=== PATIENT | female | born 1995 ===

== ENCOUNTER 2016-09-29 22:13 | Emergency (ER) | payer OTHER ==
[~2016-09-29] VITALS: Ht 157.5 cm; Wt 100.4 kg
[2016-09-29 22:16] VITALS: TEMP 36.9; Ht 157.5 cm; Wt 100.4 kg
[2016-09-29] MEDS ORDERED: SODIUM CHLORIDE 0.9% 1000ML 1,000 ML IV STA ×2 (22:31)
[2016-09-29] MEDS ORDERED: ONDANSETRON INJ 2 MG/ML 2 ML VIAL IV STA (22:31)
[2016-09-29] MEDS ORDERED: FAMOTIDINE IV INJ 20 MG in DEXTROSE 5% 100ML 100 ML IV STA (22:31)
[2016-09-29] MEDS ORDERED: MULT-580 PO (22:33)
[2016-09-29] MEDS ORDERED: BCPILLS PO (22:33)
[2016-09-29] MEDS ORDERED: DICYCLOMINE HCL 10 MG/ML 2 ML AMP IM ONE (22:45)
[2016-09-29 23:08] LABS: URINE APPEARANCE CLOUDY (CLEAR); URINE BILIRUBIN NEG (NEG); URINE COLOR YELLOW; URINE EPITHELIAL CELL AUTO >30 /lpf (0-5); URINE NITRITE NEG (NEG); URINE SPECIFIC GRAVITY 1.029 (1.000-1.030); UROBILINOGEN NEG (NEG); ZZUR CULT IF INDIC CLEAN CATCH YES
[2016-09-29 23:09] LABS: BASO % 0.4 %; BASO ABS # 0.04 K/uL (0-0.2); COMPLETE YES; EOS % 1.6 %; HEMATOCRIT 39.9 % (37-47); IG% 0.2 %; LYMPH % 15.3 %; LYMPH ABS # 1.73 K/uL (1.2-3.4); MEAN CELL VOLUME 71.9 fL (80-100); MEAN CORPUSCULAR HEMOGLOBIN 23.4 pg (25-34); MEAN CORPUSCULAR HGB CONC 32.6 g/dl (32-36); MONO % 5.8 %; NEUT % 76.7 %; PLATELET COUNT 176 K/uL (130-400); RED BLOOD COUNT 5.55 M/uL (4.2-5.4); WHITE BLOOD COUNT 11.28 K/uL (4.8-10.8)
[2016-09-29 23:10] LABS: MANUAL MICROSCOPIC REQUIRED? NO; REVIEW REQ? NO
[2016-09-29 23:26] LABS: BUN/CREATININE RATIO 17.3 (10-20); CALCIUM 8.2 mg/dl (8.5-10.1); CREATININE 0.75 mg/dl (0.60-1.20); POTASSIUM 3.8 mmol/L (3.5-5.1)
[2016-09-29 23:34] VITALS: O2SAT 99
[2016-09-29 23:39] LABS: PREG INTERNAL NEGATIVE QC NEG CLEAR BACKGROUND; PREG INTERNAL POSITIVE QC POS CONTROL LINE
[2016-09-29] MEDS ORDERED: MoRPHine SULFATE 4 MG/ML 1 ML CARP\\VIAL IV STA (23:52)
[2016-09-30] MEDS ORDERED: OPTIRAY 320 IV PRN
[2016-09-30] MEDS ORDERED: KETOROLAC TROMETHAMINE 30 MG/ML VIAL IV STA (03:39)
--- NOTE | 2016-09-30 03:44 | EMERGENCY ROOM VISIT NOTE ---
History First contact with patient: 22:23 Chief Complaint: VOMITING Stated Complaint: VOMITING, BACK AND STOMACH PAIN Nursing Triage Summary: Patient reports n/v/d and diffuse abdominal pain. States that this has been ongoing for several weeks. Patient was seen in [place] ED and told that it was her gallbladder, saw a specialist was told that it was not her gallbladder. pt has been on Zofran and a probiotic which both make her more nauseated and vomit after taking. pt reports pain is in her back and wraps around her stomach. mostly on her Left side. hx of ovarian cysts. History of Present Illness The patient is a 20 year old female who presents to the Emergency Room with complaints of nausea, vomiting, diarrhea, abdominal discomfort for the past 2 weeks who was seen at [place] and told it might be her gallbladder who saw the surgeon last week and was told this pain is not from her gallbladder. She saw Dr. Mckeon over in [place]. Patient has had recent antibiotics. She is unsure what it was that was for a bladder infection. No well water. No recent travel. Patient plans of a few episodes of vomiting and diarrhea that is nonbloody nonbilious [id number] nonblack and tarry in nature. Patient denies chest pain, dyspnea, fever, chills, cough, congestion, back pain , urinary symptoms. She describes the pain as cramping, ranging in severity 6 out of 10 to the lower abdomen. Status post appendectomy. Review of Systems See HPI for pertinent positives & negatives. A total of 10 systems reviewed and were otherwise negative. Past Medical/Surgical History Appendectomy, tonsillectomy, adenoidectomy Social History Smoking Status: Current Every Day Smoker Alcohol Use: occasionally Drug Use: none Current/Historical Medications Scheduled Control Pills ( Control Pills), 1 TAB PO DAILY Multiple Vitamins W/ Minerals (Hair/Skin/Nails), 2 TABS PO DAILY Allergies Coded Allergies: Ceftriaxone (Verified Allergy, Intermediate, Itchiness, 09/29/16) Physical Exam Vital Signs Date Time Temp Pulse Resp B/P Pulse Ox O2 Delivery O2 Flow Rate FiO2 09/30/16 01:56 66 17 126/82 99 Room Air 09/30/16 00:55 63 17 132/81 99 Room Air 09/29/16 23:34 99 Room Air 09/29/16 23:34 68 17 103/66 98 Room Air 09/29/16 23:31 68 09/29/16 23:29 68 09/29/16 22:16 36.9 84 18 151/88 97 Room Air Physical Exam VITALS: Vitals are noted on the nurse's note and reviewed by myself. Vital signs stable. GENERAL: Pleasant female, in no acute distress, nondiaphoretic, well-developed well-nourished. SKIN: The skin was without rashes, erythema, edema, or bruising. There is no tenting of the skin. Capillary reflex less than 2 seconds. HEAD: Normocephalic atraumatic. EARS: External auditory canals clear, tympanic membranes pearly [place] without erythema or effusion bilaterally. EYES: Pupils equal round and reactive to light and accommodation. Conjunctivae without injection, sclerae without icterus. Extraocular movements intact. NOSE: Patent, turbinates without inflammation or discharge. MOUTH: Mucous membranes moist. Pharynx without erythema or exudate. Uvula midline. Airway patent. Tongue does not deviate. NECK: Supple without nuchal rigidity. No lymphadenopathy. No thyromegaly. Cervical spine is nontender. No JVD. HEART: Regular rate and rhythm without murmurs gallops or rubs. LUNGS: Clear to auscultation bilaterally without wheezes, rales or rhonchi. No dullness to percussion. No retractions or accessory muscle use. ABDOMEN: Positive bowel sounds x 4. Normal tympanic percussion. Soft, protuberant, obese, tender to palpation lower abdomen, no CVA tenderness, without masses or organomegaly. Sandoval sign negative. No guarding or rebound tenderness. MUSCULOSKELETAL: No muscle atrophy, erythema, or edema noted. NEURO: Patient was alert and oriented to person place and time. Normal sensation to light and sharp touch. No focal neurological deficits. Medical Decision & Procedures Laboratory Results 09/29/16 23:00 Red Blood Count 5.55, Mean Corpuscular Volume 71.9, Mean Corpuscular Hemoglobin 23.4, Mean Corpuscular Hemoglobin Concent 32.6, Neutrophils (%) (Auto) 76.7, Lymphocytes (%) (Auto) 15.3, Monocytes (%) (Auto) 5.8, Eosinophils (%) (Auto) 1.6, Basophils (%) (Auto) 0.4, Neutrophils # (Auto) 8.66, Lymphocytes # (Auto) 1.73, Monocytes # (Auto) 0.65, Eosinophils # (Auto) 0.18, Basophils # (Auto) 0.04 09/29/16 23:00 Test 09/29/16 22:53 09/29/16 23:00 Urine Color YELLOW Urine Appearance CLOUDY (CLEAR) Urine pH 5.0 (4.5-7.5) Urine Specific [place] 1.029 (1.000-1.030) Urine Protein NEG (NEG) Urine Glucose (UA) NEG (NEG) Urine Ketones NEG (NEG) Urine Occult Blood NEG (NEG) Urine Nitrite NEG (NEG) Urine Bilirubin NEG (NEG) Urine Urobilinogen NEG (NEG) Urine Leukocyte Esterase SMALL (NEG) Urine WBC (Auto) 10-30 /hpf (0-5) Urine RBC (Auto) 0-4 /hpf (0-4) Urine Hyaline Casts (Auto) 1-5 /lpf (0-5) Urine Epithelial Cells (Auto) >30 /lpf (0-5) Urine Bacteria (Auto) 1+ (NEG) White Blood Count 11.28 K/uL (4.8-10.8) Red Blood Count 5.55 M/uL (4.2-5.4) Hemoglobin 13.0 g/dL (12.0-16.0) Hematocrit 39.9 % (37-47) Mean Corpuscular Volume 71.9 fL (80-100) Mean Corpuscular Hemoglobin 23.4 pg (25-34) Mean Corpuscular Hemoglobin Concent 32.6 g/dl (32-36) Platelet Count 176 K/uL (130-400) Neutrophils (%) (Auto) 76.7 % Lymphocytes (%) (Auto) 15.3 % Monocytes (%) (Auto) 5.8 % Eosinophils (%) (Auto) 1.6 % Basophils (%) (Auto) 0.4 % Neutrophils # (Auto) 8.66 K/uL (1.4-6.5) Lymphocytes # (Auto) 1.73 K/uL (1.2-3.4) Monocytes # (Auto) 0.65 K/uL (0.11-0.59) Eosinophils # (Auto) 0.18 K/uL (0-0.5) Basophils # (Auto) 0.04 K/uL (0-0.2) RDW Standard Deviation 44.0 fL (36.4-46.3) RDW Coefficient of Variation 16.8 % (11.5-14.5) Immature Granulocyte % (Auto) 0.2 % Immature Granulocyte # (Auto) 0.02 K/uL (0.00-0.02) Anion Gap 12.0 mmol/L (3-11) Est Creatinine Clear Calc Drug Dose 133.8 ml/min Estimated GFR () 133.9 Estimated GFR (Non- 115.6 BUN/Creatinine Ratio 17.3 (10-20) Calcium Level 8.2 mg/dl (8.5-10.1) Total Bilirubin 0.5 mg/dl (0.2-1) Direct Bilirubin 0.1 mg/dl (0-0.2) Aspartate Amino Transf (AST/SGOT) 17 U/L (15-37) Alanine Aminotransferase (ALT/SGPT) 41 U/L (12-78) Alkaline Phosphatase 62 U/L (45-117) Total Protein 7.6 gm/dl (6.4-8.2) Albumin 3.7 gm/dl (3.4-5.0) Lipase 89 U/L (73-393) Human Chorionic Gonadotropin, Qual NEG (NEG) Date/Time Source Procedure Growth Status 09/29/16 22:53 Stool C.difficile Toxin B Gene (PCR) - Final No C. difficile toxin B gene detected Complete Medications Administered Medications (Trade) Dose Ordered Sig/Allison Route Start Time Stop Time Status Last Admin Dose Admin Sodium Chloride 1,000 ml @ 999 mls/hr Q1H1M STAT IV 09/29/16 22:31 09/29/16 23:31 DC 09/29/16 23:09 999 MLS/HR Sodium Chloride (Nss 1000ml) 1,000 ml @ 125 mls/hr Q8H STAT IV 09/29/16 22:31 09/30/16 06:30 09/29/16 23:09 125 MLS/HR Ondansetron HCl (Zofran Inj) 4 mg NOW STAT IV 09/29/16 22:31 09/29/16 22:33 DC 09/29/16 23:12 4 MG Dicyclomine HCl 20 mg 20 mg NOW ONCE IM 09/29/16 22:45 09/29/16 22:46 DC 09/29/16 23:14 20 MG Famotidine/ Dextrose (Pepcid IV Inj/ D5 100ml) 102 ml @ 200 mls/hr NOW STAT IV 09/29/16 22:31 09/29/16 23:01 DC 09/29/16 23:10 200 MLS/HR Morphine Sulfate (MoRPHine SULFATE INJ) 4 mg NOW STAT IV 09/29/16 23:52 09/29/16 23:53 DC 09/30/16 00:02 4 MG ED Course Prior records/ancillary studies reviewed. Triage Nursing notes reviewed. Additional history obtained from the family. The patient's history was concerning for nausea, vomiting, diarrhea, and abdominal pain. Differential diagnosis: Etiologies such as gastroenteritis, food borne illness, infections, appendicitis , diverticulitis, inflammatory bowel disease, obstruction, GI bleed, biliary pathology, as well as others were entertained. Physical examination findings: As above. Abdominal examination revealed lower abdominal tenderness. Vital signs reviewed and revealed stable. ER treatment provided: IV hydration 1 L NSS. Zofran, Pepcid, Bentyl, morphine On reassessment the patient felt better. Patient was tolerating p.o. intake. Diagnostics interpretation by me: The labs revealed negative C. difficile. Leukocytosis. Negative urine. Negative hCG Imaging studies: CT ABDOMEN & PELVIS: Right ovarian cyst measuring up to 5 cm. Appendix is filled with air and without evidence of acute appendicitis. Evaluation of bowel is somewhat limited by lack of oral contrast and underdistention, there is no evidence of bowel obstruction or focal inflammation. No free fluid. No free air. The liver, spleen, pancreas, gallbladder and kidneys are unremarkable. Small Schmorl's nodes. Radiologist: Santosh Martinez MD US PELVIC/ENDOVAG: Right ovarian cyst measuring 5.0 x 3.3 x 4.7 cm with thin septation/daughter cyst. Left ovary is unremarkable. Blood flow demonstrated in bilateral ovaries. Septated uterus. Endometrial echo complex measures up to 1.3 cm on the right and 0.9 cm on the left, which is within normal limits for a menstruating female. Radiologist: Santosh Martinez MD This appears to be consistent with vomiting and diarrhea. Negative C. difficile testing. Ovarian cyst seen on ultrasound with good blood flow. Patient was advised follow-up family care in a few days further evaluation and workup for her ongoing symptoms in the past 2 weeks. Patient is well informed that she has not appendix despite the fact that she informed me that she had this removed. She is advised to rest, stay well-hydrated and to return to the ER immediately for abdominal pain, fevers, worsening signs or symptoms or as needed. She is advised repeat ultrasound in 6 weeks for resolution of cyst.. By the evaluation outlined above emergent etiologies such as appendicitis, diverticulitis, obstruction, cardiac sources, mesenteric ischemia, aortic pathology, inflammatory bowel disease, renal colic, PUD, biliary pathology, UTI , as well as others were deemed relatively unlikely. The pt informed about the findings as listed above. All questions were answered and pleased with the treatment. Return instructions were outlined and the patient was discharged in stable condition. Outpatient prescription management: Zofran Referral: The patient was referred to their primary care physician for follow-up in 2 to 3 days for a recheck of the current condition. Case reviewed with my attending Medical Decision As above Impression Primary Impression: Nausea, vomiting, and diarrhea Additional Impression: Right ovarian cyst Departure Information Dispostion Home / Self-Care Condition GOOD Referrals No Doctor, Assigned (PCP) Patient Instructions My [facility] Additional Instructions DO NOT drive, drink alcohol, operate machinery, or perform dangerous activities today. You were given medications in the ER that can affect your ability to safely function or operate a vehicle. Repeat pelvic ultrasound in 6 weeks for resolution of cyst seen on ultrasound tonight. Zofran(odansetron) tablets 4mg: Take one and allow it to dissolve in your mouth every four to six hours as needed for nausea or vomiting. Ibuprofen(Motrin, Advil) may be used for fever or pain. Use 600mg every six hours as needed. Take with food. Avoid using more than 2400mg in a 24 hour period. Do not use 2400mg per day for more than three consecutive days without physician direction. Prolonged inappropriate use can lead to stomach upset or ulcers. (AND/OR) Acetaminophen(Tylenol) may be used for fever or pain. Use 1000mg every six hours as needed. Avoid using more than 3000mg in a 24 hour period. Rest and drink plenty of fluids as tolerated. Slow sips of water or sports drinks are recommended instead of large amounts all at once. Continue current medications. Once your stomach is settled start with a clear liquid diet (jello, soup broth, etc.) and then advance as tolerated. You should avoid full, heavy meals for about 24 hrs from the time your symptoms resolved. Return to the ER for persistent vomiting, fevers, abdominal pain, chest pains, difficulty breathing, black or bloody stools, worsening of your condition, or as needed. Follow up with your primary physician in 2-3 days for a recheck of your current condition. Problem Qualifiers
[2016-09-30] MEDS ORDERED: ONDANSETRON HOME PACK 4MG OD TAB PO ONE (03:45)
[2016-09-30 03:49] VITALS: BP 149/86; PULSE 65; O2SAT 99
--- NOTE | 2016-09-30 06:56 | DIAGNOSTIC IMAGING REPORT ---
ABDOMEN AND PELVIS CT WITH IV CONTRAST CT DOSE: 797.62 mGy.cm HISTORY: Pain LLQ pain TECHNIQUE: Multiaxial CT images of the abdomen and pelvis were performed following the use of intravenous contrast. COMPARISON STUDY: None. FINDINGS: Lung bases are clear. Liver spleen and pancreas are unremarkable. Kidneys enhance uniformly. Bowel pattern is considered nonobstructive throughout. There is a 4.5 cm right ovarian cyst. Uterus is anteflexed. Bladder is midline. There is no significant pelvic or inguinal adenopathy. The appendix is normal. IMPRESSION: 1. 4.5 cm right ovarian cyst. 2. Otherwise negative study Electronically signed by: Eliazar Nicole M.D. 09/30/2016 6:54 AM Dictated Date/Time: 09/30/2016 6:53 AM
--- NOTE | 2016-09-30 07:26 | DIAGNOSTIC IMAGING REPORT ---
PELVIC ULTRASOUND, TRANSABDOMINAL AND TRANSVAGINAL HISTORY: Lower abdominal pain. COMPARISON: Abdomen and pelvis CT 09/30/2016. FINDINGS: Uterus: Septated uterus with the septum extending into the lower uterine segment. Endometrial stripe: Heterogeneous measuring 1.3 cm on the right and 0.9 cm on the left side of the septum. Right ovary: There is a 5.0 x 3.3 x 4.7 cm septated cyst within the right ovary. Left ovary: Normal in size and demonstrates normal color flow. Miscellaneous:No pelvic free fluid. IMPRESSION: 1. Septated uterus. 2. A 5.0 x 3.3 x 4.7 cm septated cyst within the right ovary. Follow-up pelvic ultrasound in 6-8 weeks can be performed to ensure resolution. Electronically signed by: Kashif Jacobo M.D. 09/30/2016 7:24 AM Dictated Date/Time: 09/30/2016 7:21 AM
== END 2016-09-30 04:01 | disposition home or self-care (01) ==
LOC: C.EDB 22:16 → C.EDA 09-30 04:01
DX: R11.2 Nausea with vomiting, unspecified (principal); R19.7 Diarrhea, unspecified; N83.201 Unspecified ovarian cyst, right side; F17.200 Nicotine dependence, unspecified, uncomplicated